=== PATIENT | female | born 1960 | race Caucasian/White ===

== ENCOUNTER 2021-08-03 13:38 | Inpatient (IN) | payer MEDICARE, OTHER ==
[~2021-08-03] VITALS: Ht 144.8 cm; Wt 74.2 kg
[~2021-08-03 13:38] MED LIST: DICLOFENAC SODI50 MG PO
[2021-08-03 14:44] LABS: BASOPHIL 0.5 % (0-2); EOSINOPHIL 1.5 % (0-5); HCT 39.8 % (37.0-47.0); HGB 13.7 g/dl (12.5-16.0); LYMPHOCYTE 13.6 % (15-48); MCH 32.8 pg (25.0-31.0); MCHC 34.4 g/dL (32.0-36.0); MCV 95.2 fL (78.0-100.0); MONOCYTE 9.6 % (0-12); MPV 9.8 fL (6.0-9.5); NEUTROPHIL 74.2 % (41-80); NRBC 0; PLT 311 K/uL (150-400); RBC 4.18 M/uL (4.20-5.40); RDW 13.6 % (11.5-14.0); WBC 13.9 K/uL (4.0-10.5)
[2021-08-03 14:58] LABS: INR 1.1 (0.9-1.2); PROTHROMBIN TIME 13.6 SECONDS (11.8-13.4)
[2021-08-03 14:59] LABS: PTT 28.6 SECONDS (24.4-34.7)
[2021-08-03 15:07] LABS: ALBUMIN 3.7 g/dL (3.4-5.0); BILIRUBIN - TOTAL 0.3 mg/dL (0.2-1.0); BUN/CREAT RATIO (CALC) 13.8 RATIO; CREATININE 1.52 mg/dL (0.51-0.95); GLOBULIN (CALCULATION) 4.5 g/dL; POTASSIUM 5.1 mmol/L (3.5-5.1); TOTAL PROTEIN 8.2 g/dL (6.4-8.2)
[2021-08-03 15:11] LABS: LACTIC ACID 1.3 mmol/L (0.4-1.9)
[2021-08-03 16:41] LABS: BILIRUBIN NEGATIVE (NEGATIVE); BLOOD NEGATIVE Ery/uL (NEGATIVE); CLARITY CLEAR (CLEAR); COLOR YELLOW (YELLOW); GLUCOSE (U) NORMAL (NORMAL); LEUKOCYTES NEGATIVE Leu/uL (NEGATIVE); NITRITE NEGATIVE (NEGATIVE); PROTEIN TRACE (LOW) mg/dL (NEGATIVE); UROBILINOGEN 0.2 mg/dL (0.2-1.0)
[2021-08-03] MEDS ORDERED: VENLAFAXINE HCL75 M1 PO (21:54)
[2021-08-03] MEDS ORDERED: METAXALONE800 MG PO (21:55)
[2021-08-03] MEDS ORDERED: HCTZ25 MG PO (21:56)
[2021-08-03] MEDS ORDERED: TIZANIDINE HCL4 MG PO (21:56)
[2021-08-03] MEDS ORDERED: LISINOPRIL40 MG PO (21:57)
[2021-08-03] MEDS ORDERED: NEURONTIN300 MG PO (21:57)
[2021-08-03] MEDS ORDERED: VRAYLAR4.5 MG PO (21:59)
[2021-08-03] MEDS ORDERED: TRELEGY ELLIPT1 EAC1 PO (22:00)
[2021-08-03] MEDS ORDERED: PROAIR HFA8.5 GM PO (22:01)
[2021-08-04 06:01] LABS: BASOPHIL 0.1 % (0-2); EOSINOPHIL 0 % (0-5); HCT 32.6 % (37.0-47.0); HGB 10.8 g/dl (12.5-16.0); LYMPHOCYTE 6.3 % (15-48); MCH 32.8 pg (25.0-31.0); MCHC 33.1 g/dL (32.0-36.0); MCV 99.1 fL (78.0-100.0); MONOCYTE 2.1 % (0-12); MPV 9.9 fL (6.0-9.5); NRBC 0; PLT 194 K/uL (150-400); RBC 3.29 M/uL (4.20-5.40); RDW 13.5 % (11.5-14.0); WBC 9.1 K/uL (4.0-10.5)
[2021-08-04 06:06] LABS: BUN/CREAT RATIO (CALC) 16.7 RATIO; C-REACTIVE PROTEIN 2.8 mg/dL (<=0.90); CREATININE 1.26 mg/dL (0.51-0.95); POTASSIUM 4.7 mmol/L (3.5-5.1)
[2021-08-04 06:13] LABS: NEUTROPHIL 90.7 % (41-80)
--- NOTE | 2021-08-04 09:47 | NUR ---
PT TOOK HOME DOSE OF VRAYLAR FROM HER OWN SUPPLY.
--- NOTE | 2021-08-04 09:56 | NUR ---
08/04/21 Ms. Canchola shares a home with as friend. She is indepedent with mobility and ADLS. Her friend provides transportation. Ms. Canchola receives foodstamps. She reports to be able to meet her financial obligations. - [employer] delivered a nebulizer.
[2021-08-04] MEDS ORDERED: DUONEB 2.5-0.5M1 AMP NEB (11:22)
== END 2021-08-04 13:15 | disposition home or self-care (01) | DRG 640 ==
LOC: FER 13:38 → FMS 17:16 → FICU 17:16
PROVIDERS: Emergency Medicine; Nurse Practitioner Acute Care; ADMIT Allergy & Immunology Allergy
DX: E86.1 Hypovolemia (principal); R57.0 Cardiogenic shock; N17.9 Acute kidney failure, unspecified; I95.2 Hypotension due to drugs; E87.1 Hypo-osmolality and hyponatremia; Z20.822 Contact with and (suspected) exposure to COVID-19; E86.0 Dehydration; J44.9 Chronic obstructive pulmonary disease, unspecified; D64.9 Anemia, unspecified; R73.9 Hyperglycemia, unspecified; E66.9 Obesity, unspecified; R07.89 Other chest pain; T46.4X5A Adverse effect of angiotensin-converting-enzyme inhibitors, initial encounter; F41.9 Anxiety disorder, unspecified; F32.A Depression, unspecified; G62.9 Polyneuropathy, unspecified; I10 Essential (primary) hypertension; Z68.33 Body mass index [BMI] 33.0-33.9, adult; Z82.49 Family history of ischemic heart disease and other diseases of the circulatory system; Z79.899 Other long term (current) drug therapy; Z87.891 Personal history of nicotine dependence
CPT/HCPCS: 36415; 70450; 71045; 80048; 80053; 81003; 82550; 83605; 83880; 84145; 84484; 85025; 85379; 85610; 85730; 86140; 87040; 87088; 93005; 94640; G0378; J1100; J1170; J2270; J2405; J2543; J7030; J7120; U0002